=== PATIENT | female | born 1950 | race Caucasian/White ===

== ENCOUNTER → 2017-07-28 | Day surgery (SDC) | payer MEDICARE ==
--- NOTE | 2017-07-28 15:17 | MMO ---
ULTRASOUND GUIDED BIOPSY OF LEFT BREAST MASS: Date: 07/28/17 COMPARISON: Ultrasound performed at [facility] on 07/23/17. FINDINGS: Targeted sonographic imaging of left axilla performed. Static and real-time images performed by the r adiologist do not demonstrate the previously identified hypoechoic mass which was presumed to be an e nlarged/abnormal left axillary lymph node. Technically successful ultrasound guided biopsy of a shadowing mass in the left breast, near the 7 o' clock position. A total of three 14 gauge core biopsy samples were obtained. Specimens were placed di rectly in Formalin. Post biopsy clip was placed. Post biopsy mammogram demonstrates the surgical clip approximately 5.0 mm from the suspected lesion. TECHNIQUE: Consent obtained for ultrasound guided biopsy of a left breast shadowing mass. Left breast was preppe d and draped in the sterile fashion. 1% lidocaine, buffered with sodium bicarbonate, was used for loc al anesthesia. Under sonographic guidance, a 14 gauge needle was used to obtain three core biopsy dada ples. Samples were placed directly i9n Formalin. The patient tolerated the procedure well. No immedia te or postprocedure complication. Targeted left axillary ultrasound was performed. The previously noted area of hypoechogenicity sugges ting an irregular left axillary lymph node was not appreciated on static and real-time imaging. IMPRESSION: 1. Technically successful ultrasound guided biopsy of a left breast mass. Final pathologic diagnosis pending. Biopsy clip was placed. 2. Nonvisualization of previously suspected left axillary lymph node. POS: [facility]
== END ==
LOC: ULT 12:36
PROVIDERS: ATTEND Physician Assistant
PROC: 0HBU3ZX Excision of Left Breast, Percutaneous Approach, Diagnostic (ICD-10-PCS; principal; 2017-07-28)
DX: C50.812 Malignant neoplasm of overlapping sites of left female breast (principal)
CPT/HCPCS: 19083; G0206; 88305; 88341; 88342; 88360